=== PATIENT | male | born 1985 | race Caucasian/White ===

== ENCOUNTER 2017-05-27 22:32 | Emergency (ER) | payer SELFPAY ==
[~2017-05-27] VITALS: Ht 182.9 cm; Wt 88.5 kg
[~2017-05-27 22:32] MED LIST: 1-ME1LIQ PO; RIVA15 PO; SULF-154 PO
[2017-05-27 23:00] VITALS: BP 159/95; PULSE 86; RESP 16; TEMP 98.8; O2SAT 95
[2017-05-27 23:20] VITALS: BP 159/95; PULSE 88; RESP 16; TEMP 98.8; O2SAT 95
--- NOTE | 2017-05-27 23:46 | PD ---
HPI Chief Complaint: Injury Time Seen by Provider: 23:13 Travel History International Travel<30 days: No Contact w/Intl Traveler<30days: No Traveled to known affect area: No History of Present Illness HPI This is a 31-year-old male who presents to the emergency department having sustained a crush injury to his fingers when he was carrying a cabinet and the door swung shut on them. He has moderate severity pain in his third and fourth fingers in the right hand and third finger on the left hand, constant, associated with swelling. He denies any numbness or weakness and denies any other injuries. PFSH Past Medical History Hx Anticoagulant Therapy: Yes Cardiovascular Problems: Yes (HTN) High Cholesterol: Yes (NOT ON MEDS) Diabetes: No Diminished Hearing: No Genitourinary: No Hypertension: Yes Implanted Vascular Access Dvce: No Medical other: Yes (PE AND POLYCYSTIC KIDNEY DISEASE) Musculoskeletal: No Neurologic: No Respiratory: No Immunizations Current: Yes Tetanus Vaccination: Unknown Influenza Vaccination: No ?: Not Past Surgical History Surgical History: No Previous Surgery Abdominal Surgery: Yes (HERNIA REMOVED) Oral Surgery: Yes (TEETH REMOVED) Other Surgery: Yes Social History Alcohol Use: No Tobacco Use: Yes Substance Use: Yes (MARIJUANA) Allergies-Medications (Allergen,Severity, Reaction): Coded Allergies: No Known Allergies (Unverified , 05/27/17) Reported Meds & Prescriptions Reported Meds & Active Scripts Active No Active Prescriptions or Reported Medications Review of Systems General / Constitutional: No: Fever, Chills Gastrointestinal: No: Nausea, Vomiting Physical Exam Narrative GENERAL: Well-appearing, no acute distress, nontoxic SKIN: Swelling and ecchymoses of the fingernails on the third and fourth fingers of the right hand in the third finger on the left hand with no subungual hematoma HEAD: Atraumatic. Normocephalic. ENT: No nasal bleeding or discharge. Moist mucous membranes MUSCULOSKELETAL: Tender to palpation on the tips of the third, fourth digits on the right hand on the third digit on the left hand. Able to flex and extend at the DIPs of all fingers. NEUROLOGICAL: Awake and alert. No obvious cranial nerve deficits. Motor grossly within normal limits. Normal speech. PSYCHIATRIC: Appropriate mood and affect; insight and judgment normal. Data Data Last Documented VS Vital Signs Date Time Temp Pulse Resp B/P (MAP) Pulse Ox O2 Delivery O2 Flow Rate FiO2 10/25/17 23:00 98.8 86 16 159/95 (116) 95 Orders Orders Hand, Limited (2vws) (05/27/17 ) Hand, Limited (2vws) (05/27/17 ) MDM Medical Decision Making Medical Screen Exam Complete: Yes Emergency Medical Condition: Yes Differential Diagnosis Distal phalanx fracture, subungual hematoma, finger contusion Narrative Course This is a 31-year-old male who presents to the emergency department having crush injuries to 3 of his fingers. He has a normal neurovascular exam. There is no evidence of subungual hematoma. X-rays were obtained which were reassuring. Patient will be discharged home. Diagnosis Primary Impression: Crushing injury of finger(s) Patient Instructions: General Instructions Med/Other Pt SpecificInfo: No Change to Meds Scripts No Active Prescriptions or Reported Meds Disposition: 01 DISCHARGE HOME Condition: Stable Krystal Carroll MD May 27, 2017 23:46
--- NOTE | 2017-05-28 | RADRPT ---
EXAM DATE/TIME: 05/27/2017 23:32 [facility] COMPARISON: No previous studies available for comparison. INDICATIONS : Right hand pain after moving a dresser. MEDICAL HISTORY : None. 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 ENCOUNTER: Initial ACUITY: 1 day PAIN SCORE: 6/10 LOCATION: Right hand. FINDINGS: Two view examination of the right hand demonstrates no soft tissue swelling, dislocation, or fracture . The joint spaces are maintained. Bony mineralization is normal. Partial amputation of the middle phalanx index finger distally. CONCLUSION: 1. No acute fracture. 2. Partial amputation index finger. Mateo Arias MD on May 27, 2017 at 23:58 Board Certified Radiologist. This report was verified electronically.
--- NOTE | 2017-05-28 | RADRPT ---
EXAM DATE/TIME: 05/27/2017 23:32 [facility] COMPARISON: No previous studies available for comparison. INDICATIONS : Left hand pain after moving a dresser. MEDICAL HISTORY : None. SURGICAL HISTORY : None. ENCOUNTER: Initial ACUITY: 1 day PAIN SCORE: 6/10 LOCATION: Left hand. FINDINGS: Two view examination of the left hand demonstrates no soft tissue swelling, dislocation, or fracture. The joint spaces are maintained. Bony mineralization is normal. CONCLUSION: No acute fracture. Mateo Arias MD on May 27, 2017 at 23:59 Board Certified Radiologist. This report was verified electronically.
[2017-05-28 00:21] VITALS: BP 161/93; TEMP 98.6
== END 2017-05-28 00:29 | disposition home or self-care (01) ==
LOC: PHED 22:32
DX: S67.192A Crushing injury of right middle finger, initial encounter (principal); S67.194A Crushing injury of right ring finger, initial encounter; S67.193A Crushing injury of left middle finger, initial encounter; I10 Essential (primary) hypertension; W23.0XXA Caught, crushed, jammed, or pinched between moving objects, initial encounter; Z79.01 Long term (current) use of anticoagulants; Z72.0 Tobacco use
CPT/HCPCS: 73120; 99284